=== PATIENT | male | born 1980 | race Caucasian/White ===

== ENCOUNTER 2021-02-25 16:22 | Emergency (ER) | payer OTHER, SELFPAY ==
--- NOTE | 2021-02-25 16:31 | HMH.EDGENADL ---
ED Disposition Clinical Impression: Choking episode Disposition: Home, Self-Care Condition on Discharge: Good Referrals: Ayde Mota [Primary Care Provider] - Time of Disposition: 16:54 - Critical Care Critical Care Time: No Attestation: On , the high probability of a clinically significant, sudden or life threatening deterioration of the following system(s) required my full and direct attention, intervention and personal management. The time I documented below is in addition to time spent performing reported procedures but includes the following listed in this critical care notation. Medical Decision Making - Medical Records Medical records reviewed: Yes: I reviewed the patient's medical records. - [place] Inquiry Pt receiving controlled substance: No Medical Decision Narrative: 40yo M evaluated for possible large food bolus. Patient's complaints are actually higher and not in his esophagus. Visual exam is benign. Patient is drinking water freely and without pain. Discussed soft diet and to avoid meat for dinner. Patient voiced understanding. Patient return to the emergency department if he is unable to swallow. General Adult HPI - General Stated complaint: food lodged in throat Time Seen by Provider: 02/25/21 16:31 Mode of Arrival: Ambulatory - History of Present Illness HPI narrative: 40yo M presents the emergency department secondary to concern for large food bolus. Patient was eating a crunchy shell taco when he got choked. He states he feels something is in the back of his throat. He denies previous episodes of choking. Denies previous EGD. Denies any shortness of breath. Patient is tolerating water and other liquids without difficulty. He has not tried other solids out of fear. He states his symptoms are improving. - Related Data Allergies Allergy/AdvReac Type Severity Reaction Status Date / Time No Known Allergies Allergy Unverified 08/21/17 14:44 [facility] History - Hepatitis A Screen Drug use history?: No Attestation statement:: This patient has been screened for Hepatitis A risk factors. I have reviewed the patient's past medical history: Yes Other Surgeries: Yes: No Previous Surgery - Social History Smoking Status: Never smoker ROS Obtained: Yes All systems reviewed & no additional complaints - ENT Ears, Nose, Mouth, and Throat: Reports as per HPI Physical Exam - General General appearance: alert, in no apparent distress - Head Head exam: atraumatic - Eye Eye exam: Present: normal appearance - ENT ENT exam: Present: normal exam - Neck Neck exam: Present: normal inspection - Chest Chest inspection: Present: normal inspection - Respiratory Respiratory exam: Present: normal lung sounds bilaterally. Absent: respiratory distress - Cardiovascular Cardiovascular exam: Present: regular rate, normal rhythm. Absent: JVD - Abdominal Exam Abdominal exam: Present: soft, normal bowel sounds. Absent: distention, tenderness, guarding - Extremities Exam Extremities exam: Present: normal inspection, full ROM, normal capillary refill. Absent: calf tenderness - Back Exam Back exam: Present: normal inspection. Absent: tenderness - Neurological Exam Neurological exam: Present: alert, oriented X3, CN II-XII intact
[2021-02-25 16:55] VITALS: BP 145/71; PULSE 67; RESP 18; TEMP 36.6; O2SAT 98
== END 2021-02-25 17:03 | disposition home or self-care (01) ==
PROVIDERS: Emergency Provider Family Medicine; PCP Nurse Practitioner Family
DX: T17.328A Food in larynx causing other injury, initial encounter (principal)

== ENCOUNTER 2021-09-14 18:09 | Emergency (ER) | payer OTHER, SELFPAY ==
[2021-09-14 18:10] VITALS: BP 153/91; PULSE 117; RESP 16; TEMP 36.6; O2SAT 98; BMI 31.6
--- NOTE | 2021-09-14 18:20 | HMH.EDGENADL ---
ED Disposition Clinical Impression: Splinter in skin Disposition: Home, Self-Care Condition on Discharge: Good Additional Instructions: Clean the area with soap and water daily. Return to the emergency room if any redness, red streaks, pus drainage, or swelling. Referrals: Ayde Mota [Primary Care Provider] - - Critical Care Critical Care Time: No Attestation: On 09/14/21, the high probability of a clinically significant, sudden or life threatening deterioration of the following system(s) required my full and direct attention, intervention and personal management. The time I documented below is in addition to time spent performing reported procedures but includes the following listed in this critical care notation. Medical Decision Making - [place] Inquiry Pt receiving controlled substance: No Vital Signs: 09/14/21 18:10 Temperature 98 F Temperature Source Oral Pulse Rate [Radial] 117 H Respiratory Rate 16 Blood Pressure [Right Arm] 153/91 H Blood Pressure Mean [Right Arm] 111 Blood Pressure Position [Right Arm] Sitting 02 Sat by Pulse Oximetry 98 Oxygen Delivery Method Room Air Orders (Tests/Meds): ED MEDICATIONS Discontinued Medications Generic Name Dose Route Start Last Admin Trade Name Freq PRN Reason Stop Dose Admin Tetanus/Reduced Diphtheria/Acell Pertussis 0.5 ml 09/14/21 18:27 09/14/21 18:35 Tet/Diphth/Pert-Adult 0.5ml Syringe IM 09/14/21 18:28 Not Given .ONCE ONE Tetanus/Reduced Diphtheria/Acell Pertussis 0.5 ml 09/14/21 18:27 09/14/21 18:34 Tet/Diphth/Pert-Adult 0.5ml Syringe IM 09/14/21 18:28 0.5 ml .ONCE ONE Administration General Adult HPI - General Stated complaint: SPINDER UNDER r THUMB Time Seen by Provider: 09/14/21 18:20 - History of Present Illness HPI narrative: Patient got a wood splinter under his right thumbnail yesterday when he reached for the bathroom door. The splinter came off of a door jam. His sister who is a nurse tried to remove it but was unsuccessful. His last tetanus immunization is unknown. - Related Data Allergies Allergy/AdvReac Type Severity Reaction Status Date / Time No Known Allergies Allergy Unverified 08/21/17 14:44 [facility] History - Hepatitis A Screen Attestation statement:: This patient has been screened for Hepatitis A risk factors. I have reviewed the patient's past medical history: Yes Other Surgeries: Yes: No Previous Surgery - Social History Smoking Status: Never smoker ROS Obtained: Yes Systems reviewed as appropriate & no additional complaints - Constitutional Constitutional: Denies fever(s) - Integumentary/Breasts Skin/Breast: Reports wounds Physical Exam - General General appearance: alert, in no apparent distress - Respiratory Respiratory exam: Absent: respiratory distress - Cardiovascular Cardiovascular exam: Present: regular rate - Expanded Upper Extremity Exam Right Comment: 1 cm centimeter subungual right thumb. Wood splinter - Neurological Exam Neurological exam: Present: alert, oriented X3 - Psychiatric Psychiatric exam: Present: normal affect, normal mood - Skin Skin exam: Present: warm, dry Procedures - Miscellaneous Procedure Procedure Performed: Procedure: Right thumb anesthetized with 0.5% bupivacaine digital block. A small triangle of nail was removed from the distal margin of the nail where the splinter tract starts. This exposed the end of the splinter which was then able to be grasped with hemostats and removed. It appears to have been removed in its entirety. The wound will be cleansed and irrigated and bandaged.
--- NOTE | 2021-09-14 18:35 | PC.NURSE ---
tdap lot #[id number] expires 05/12/23
--- NOTE | 2021-09-14 18:52 | PC.NURSE ---
rayo lt thumb pso dsging applied
[2021-09-14 18:53] VITALS: BP 149/78; PULSE 102; RESP 16; TEMP 36.6; O2SAT 98
== END 2021-09-14 18:55 | disposition home or self-care (01) ==
PROVIDERS: Emergency Provider Emergency Medicine; PCP Nurse Practitioner Family
DX: S60.351A Superficial foreign body of right thumb, initial encounter (principal); Z23 Encounter for immunization
CPT/HCPCS: 10120; 90715; 99282